=== PATIENT | female | born 1995 | race Caucasian/White ===

== ENCOUNTER 2017-09-22 16:38 | Emergency (ER) | payer BC ==
[~2017-09-22] VITALS: Ht 170.2 cm; Wt 80.7 kg
[2017-09-22 16:42] VITALS: Ht 170.2 cm; Wt 80.7 kg
[2017-09-22 18:03] VITALS: BP 140/92
== END 2017-09-22 18:03 | disposition home or self-care (01) ==
LOC: ED 16:38
DX: S61.451A Open bite of right hand, initial encounter (principal); W54.0XXA Bitten by dog, initial encounter; Y93.89 Activity, other specified; Y92.89 Other specified places as the place of occurrence of the external cause; Y99.8 Other external cause status
CPT/HCPCS: 90715

== ENCOUNTER 2017-09-25 06:23 | Emergency (ER) | payer BC ==
[~2017-09-25] VITALS: Ht 170.2 cm; Wt 101.6 kg
[2017-09-25 06:38] VITALS: Ht 170.2 cm; Wt 101.6 kg
[2017-09-25 07:46] VITALS: BP 118/85
== END 2017-09-25 07:42 | disposition home or self-care (01) ==
LOC: ED 06:23
DX: S61.451D Open bite of right hand, subsequent encounter (principal); W54.0XXD Bitten by dog, subsequent encounter